=== PATIENT | female | born 1960 | race Caucasian/White ===

== ENCOUNTER → 2018-11-01 | Outpatient (CLI) | payer OTHER | LOC: M.RAD 13:52 | DX: Z12.31 Encounter for screening mammogram for malignant neoplasm of breast (principal) ==

== ENCOUNTER 2020-08-09 04:06 | Observation (INO) | payer OTHER ==
[~2020-08-09] VITALS: Ht 172.7 cm; Wt 65.3 kg
--- NOTE | ~2020-08-09 | OP ---
[address] [address] OPERATIVE REPORT Name: HECKDAVID JANINE Room: [address] [place]#: [id number] Admission: 08/09/20 Attend Phys: Marry Branham MD Discharge: Date of : 64 Report #: [id number] THIS REPORT FOR: cc: Alex Mattson MD, Ram MD ~ Haggard, Kent L MD DATE OF SERVICE: 08/09/2020 PREOPERATIVE DIAGNOSIS: Right ureteropelvic junction obstruction. POSTOPERATIVE DIAGNOSIS: Right ureteropelvic junction obstruction. PROCEDURE: Cystoscopy, right retrograde pyelogram, right ureteral stent placement. STAFF SURGEON: Tyron Valadez MD CHLOROBUTADIENE SCRUBBER OPERATOR: None. ANESTHESIA: General. EBL: None. COMPLICATIONS: None. SPECIMEN: None. DRAINS: A 30 cm x 6-Tristanian right ureteral stent. INDICATIONS: The patient is a pleasant 59-year-old white female who had a prior UPJ repair about [address] Benedicto Aguirre. About 7 years ago, she developed some rather severe right flank pain that required about a 2-month period where she had an internal ureteral stent. This was subsequently removed and had been doing relatively well until midnight last night when she developed flank pain, 10 on a scale of 10, and brought via EMS to [facility] where a CT scan showed right hydronephrosis down to the UPJ level. She had no fever or chills. No nausea or vomiting. Her pain was manageable. She was counseled regarding treatment options, elected for definitive cystoscopy, right retrograde pyelogram, right ureteroscopy, possible right ureteroscopy and right ureteral stent placement. After the risks and benefits of the procedure were explained, informed consent was obtained. DESCRIPTION OF PROCEDURE: The patient was taken to the operating room, comfortably placed in the dorsal lithotomy position under adequate general anesthesia. She was sterilely prepped and draped [place] [address] OPERATIVE REPORT Name: DAVID HECK Room: [address]R.#: [id number] Admission: 08/09/20 Attend Phys: Marry Branham MD Discharge: Date of : 64 Report #: [id number] only the genitalia. She received her antibiotic therapy as prescribed. Appropriate timeout was carried out and all were in agreement. A 22-Tristanian cystoscope with the obturator in place was blindly inserted into the urethra. The obturator was removed, draining clear kristen colored urine. Bladder was systematically viewed. Both ureteral orifices identified normal. No bladder calculi seen or foreign body observed. Mucosa was smooth without any irregularity. An 8-Tristanian cone-tipped catheter placed in the right ureteral orifice and a retrograde pyelogram performed showing a normal caliber ureter up to the ureteropelvic junction and appeared to have a very tight narrowing jet shooting into the renal pelvis filling up with contrast indicative of a high flow area, oftentimes seen with a stricture. A 0.035 Glidewire was advanced up to the right ureter to the level of the kidney and initially a 28 cm x 6-Tristanian ureteral stent was put in place, but the length was just at the ureteropelvic junction and inside the bladder. In fact, it was just short enough that it could not get a full complete coil at the level of the kidney. Grasping forceps had to be used to grasp the stent and brought out through the urethral meatus. A 0.035 Glidewire was advanced coaxially ____ 30 cm stent was advanced over the guidewire in position with a good coil in the right renal pelvis and a good coil in the bladder. Cystoscope was removed. She tolerated this extremely well. She was extubated in the operating room, transferred to [facility] with assistance and went to recovery in stable condition. Check a nuclear medicine renal scan with washout in about 6 weeks and about cystoscopy, right stent removal, right ureteroscopy in about 2 months. By: [id number] Lo Valadez MD /loida
[2020-08-09 04:07] VITALS: BP 118/40
[2020-08-09] MEDS ORDERED: CARBIDOPA-LEVO1 EAC9 PO (04:21)
[2020-08-09] MEDS ORDERED: GABAPENTIN800 M1 PO (04:21)
[2020-08-09] MEDS ORDERED: TRIHEXYPHENIDYL2 M2 PO (04:22)
[2020-08-09] MEDS ORDERED: ZYRTEC10 M5 PO (04:23)
[2020-08-09] MEDS ORDERED: SERTRALINE HCL100 MG PO (04:23)
[2020-08-09] MEDS ORDERED: FLORINEF ACETA0.1 MG PO (04:23)
[2020-08-09] MEDS ORDERED: AMANTADINE50 MG/5 ML PO (04:26)
[2020-08-09 04:33] LABS: ABSOLUTE EOSINOPHILS 0.1 thou/uL (0.0-0.7); ABSOLUTE LYMPHOCYTES 0.9 thou/uL (0.8-5.3); ABSOLUTE MONOCYTES 0.6 thou/uL (0.0-1.2); ABSOLUTE NEUTROPHILS 4.5 thou/uL (1.6-8.1); BASOPHILS 0.4 %; EOSINOPHILS 0.9 %; HEMOGLOBIN 13.3 gm/dL (12.0-15.0); LYMPHOCYTES 15.3 %; MCH 29.9 pg (26.0-34.0); MCHC 33.3 g/dL (28.0-37.0); MCV 89.8 fL (80.0-100.0); MPV 8.4 fl. (7.2-11.1); NUCLEATED RBCS 0 /100WBC; PLATELET COUNT* 174 thou/uL (150-400); POLYS 73.4 %; RBC 4.46 mil/uL (4.20-5.00); RDW-CV 14.8 % (10.5-14.5); WBC 6.2 thou/uL (4.0-11.0)
[2020-08-09 04:37] LABS: CALCIUM 9.6 mg/dL (8.5-10.1); CREATININE 0.9 mg/dL (0.6-1.3); POTASSIUM 3.7 mmol/L (3.5-5.1)
[2020-08-09 04:39] LABS: URINE BILIRUBIN NEGATIVE (Negative); URINE BLOOD TRACE (Negative); URINE CLARITY CLEAR; URINE COLOR YELLOW; URINE GLUCOSE-RANDOM NEGATIVE (Negative); URINE KETONES NEGATIVE (Negative); URINE LEUKOCYTES-REFLEX NEGATIVE (Negative); URINE NITRITE-REFLEX NEGATIVE (Negative); URINE PROTEIN NEGATIVE (Negative); URINE UROBILINOGEN 0.2 E.U./dl (0.2-1.0)
[2020-08-09 04:41] LABS: TOTAL BILIRUBIN 0.5 mg/dL (<0.1-1.0); TOTAL PROTEIN 6.9 g/dL (6.4-8.2)
[2020-08-09 07:42] VITALS: BP 103/64
--- NOTE | 2020-08-09 09:08 | EKG ---
[place] [address] ELECTROCARDIOGRAM REPORT Name: DAVID HECK Room: [address]#: [id number] Admission: 08/09/20 Attend Phys: Marry Branham, Discharge: Date of : 64 Date of Service: 08/09/20 0439 Report #: [id number] THIS REPORT FOR: //name// [facility] ED Test Date: 2020-08-09 Test Time: 04:39:49 Pat Name: DAVID HECK Department: Room: [facility] Gender: F Physics Teacher: CCD : 1960 Requested By: Bianca Fish Order Number: [id number] MD: Jesus Dietz Measurements Intervals Slick Rate: 77 P: 43 WY: 53 QRS: 79 QRSD: 100 T: 24 QT: 377 QTc: 427 Interpretive Statements Sinus rhythm Artifact in lead(s) I,II,III,aVR,aVL,aVF,V1,V2,V3,V4,V5,V6 No previous ECG available for comparison Electronically Signed On 08-09-2020 9:08:41 [employer]ILLOFACIAL PROSTHETICS DENTIST by Jesus Dietz [email or web address] <ELECTRONICALLY SIGNED> By: Jesus Dietz MD, FACC 08/09/2008 8 8 Jesus Dietz MD, FACC /EPI
[2020-08-09 20:13] VITALS: BP 100/57
[2020-08-10 00:19] VITALS: BP 122/72
[2020-08-10 04:41] VITALS: BP 114/65
[2020-08-10 05:13] LABS: CREATININE 0.8 mg/dL (0.6-1.3); POTASSIUM 3.7 mmol/L (3.5-5.1)
[2020-08-10 07:20] VITALS: BP 119/68
[2020-08-10 08:23] VITALS: BP 119/68
== END 2020-08-10 10:30 | disposition home or self-care (01) ==
LOC: M.ERS 04:06 → M.TBA-ER 06:19 → M.ORTHSURG 06:19
PROVIDERS: Internal Medicine; Personal Emergency Response Attendant; ADMIT Internal Medicine; ATTEND Internal Medicine
DX: N13.2 Hydronephrosis with renal and ureteral calculous obstruction (principal); F32.9 Major depressive disorder, single episode, unspecified; Z20.822 Contact with and (suspected) exposure to COVID-19; N28.9 Disorder of kidney and ureter, unspecified; Z88.8 Allergy status to other drugs, medicaments and biological substances; Z90.49 Acquired absence of other specified parts of digestive tract; Z90.710 Acquired absence of both cervix and uterus; Z79.899 Other long term (current) drug therapy; Z96.82 Presence of neurostimulator